=== PATIENT | male | born 1990 | race Hispanic/Latino ===

== ENCOUNTER 2016-11-28 19:42 | Emergency (ER) | payer SELFPAY ==
[~2016-11-28] VITALS: Ht 182.9 cm; Wt 90.0 kg
[~2016-11-28 19:42] MED LIST: HYDR-4003 PO
[2016-11-28 19:58] VITALS: BP 129/78; PULSE 92; RESP 24; O2SAT 92
--- NOTE | 2016-11-28 20:26 | ED.REPORT ---
HPI-Extremity Problem Upper Date of Service Nov 28, 2016 ED Provider: Bryant Puga DO Pt is an otherwise healthy 26 year old male with a history of multiple shoulder dislocations who presents to the ED complaining of increasing right shoulder pain onset this morning when he woke up. He reports the pain is similar to when he has dislocated his shoulder previously. He denies any other symptoms. Nursing Notes Stated Complaint: DISLOCATED SHOULDER Chief Complaint: Extremity Trauma Nursing Notes Reviewed: Yes Allergies: Coded Allergies: No Known Allergies (Verified Allergy, Unknown, 12/01/15) Scheduled PRN Hydrocodone-Acetaminophen 5-325 mg (Hydrocodone-Acetaminophen 5-325 mg) 1 Each Tablet 1-2 TABLET PO Q4H PRN PRN For Pain General Time Seen by MD: 20:25 Chief Complaint Shoulder injury right Hx Obtained From: Patient Arrived By: Walk-in Onset Occurred: 9 - 12 hours ago Symptom Duration: Since onset Location: : Shoulder right Quality: Painful Severity: Current: Moderate Severity: Maximum: Moderate Recent Healthcare: No recent doctor visit, No recent hospitalization Similar Sx Previous: Yes Past Medical History Past Medical History Multiple shoulder dislocations Past Surgical History None Smoking History Never Smoker Review of Systems Constitutional: Denies: Fever Musculoskeletal: Reports: Extremity pain Complete sys rev & neg: except as marked. Respiratory: Denies: Non-productive cough, Shortness of breath Cardiovascular: Denies: Chest pain Physical Exam Initial Vital Signs Vital Signs (First) Date Time Temp Pulse Resp B/P Pulse Ox O2 Delivery O2 Flow Rate FiO2 11/28/16 19:58 36.4 92 24 129/78 92 Room Air Initial VS: Reviewed Head / Eyes: Atraumatic, Normocephalic, PERRL ENT: Mucous membranes moist, Conjunctiva normal, No scleral icterus Neck: Supple, Full range of motion Respiratory: Breath sounds normal, Clear to auscultation, No respiratory distress Cardiovascular: Regular rate & rhythm, Heart sounds normal, Intact distal pulses Abdomen / GI: Soft, Non-tender Lower Extremities: Vascular intact, Neuro intact Skin: Warm, Dry, No cyanosis Neurologic: Alert, Oriented, Nonfocal Psychiatric: Mood/affect normal, Behavior normal General/Constitutional: Awake, Alert, Cooperative, Not toxic appearing Upper Extremity / MS: Neurologic intact, Vascular intact Right dislocated shoulder. Interpretation & Diagnostics Lab Results Interpretation Test 11/28/16 20:33 Hold Purple Top Tube Received (Received) Hold Blue Top Tube Received (Received) Hold Red Top Tube Received (Received) Hold [place] Top Tube Received (Received) X-Ray Interpretation Xray Interpretation: IMPRESSION: Anterior-inferior right shoulder dislocation. Dictated by: Lonny Liu M.D. on 11/28/2016 at 20:44 Study Performed: One view X-Ray Ordered: Shoulder right Interpretation / Wet Read by: Interpret - Radiologist Xray Interpretation: IMPRESSION: Interval relocation of right shoulder. Possible Hill-Sachs deformity. Dictated by: Lonny Liu M.D. on 11/28/2016 at 21:54 Study Performed: Minimum 3-views X-Ray Ordered: Shoulder right Interpretation / Wet Read by: Interpret - Radiologist Procedures Reduction Dislocated Shoulder Time: 21:04 Procedure Performed by: ED physician Consent / Setup: Consent from patient, Oxygen administered, Pulse oximeter applied, traffic monitor specialist applied, Hand hygiene observed, Stand sterile technique Procedural Sedation/Analgesia: Sedation: Ketamine Which Shoulder and Technique: Right shoulder Neurovascular: Intact pre-procedure Post-Procedure / Complications: Reduced per examination, Procedure successful, X-ray disloc reduced, Shoulder immobilized, Condition improved, Tolerated procedure well, Patient stable Re-Eval/Medical Decision Source of Hx: Old records Re-Evaluation/Progress #1: Time of Eval: 20:26 Re-Evaluation/Progress Note: Pt rechecked. Dislocation procedure was attempted, but was unsuccessful. Pt will need to be sedated for relocation of his shoulder. All questions were answered. Re-Evaluation/Progress #2: Time of Eval: 20:48 Re-Evaluation/Progress Note: Pt rechecked. Pt informed of plan for treatment. All questions were answered. Re-Evaluation/Progress #3: Time of Eval: 21:04 Re-Evaluation/Progress Note: Pt rechecked. Relocation of pt's right shoulder was performed under sedation. All questions were answered. Re-Evaluation/Progress #4: Time of Eval: 21:23 Patient Status: Condition improved Re-Evaluation/Progress Note: Pt rechecked. Pt reported that his shoulder is feeling better. All questions were answered. Discharge & Departure Impression: Primary Impression: Dislocation of right shoulder joint Encounter type: initial encounter Qualified Code: S43.004A - Unspecified dislocation of right shoulder joint, initial encounter Additional Impression: Hill Sachs deformity Disposition: Home Discharge Condition All VS Reviewed: Yes Condition: Stable Patient Instructions: Shoulder Dislocation (ED) Additional Instructions: You were seen today for a right shoulder dislocation. Do not drive tonight. Take 1-2 Percocet every 6 hours as needed. Do not drive or drink alcohol or consume acetaminophen while taking Percocet. Call orthopedics for a follow up tomorrow. Keep your shoulder immobilized until you are cleared by orthopedics. Return to the Emergency Department for any new or worsening symptoms. Referrals: [facility] (PCP) Wellington Jenkins MD Attestation Portions of this note were transcribed by Marly Pruitt. I, Dr. Puga personally performed the history, physical exam and medical decision-making; I reviewed and confirmed the accuracy of the information in the transcribed note. Signed by: Krysten Carrero, 11/28/16 and 22:00 copies to: [facility]; Wellington Jenkins MD, Todd P DO Nov 28, 2016 20:26 Marly Farrell Nov 28, 2016 21:43
[2016-11-28] MEDS ORDERED: Ketamine 10 mg/mL 20 mL Inj IV ONE (20:30)
[2016-11-28] MEDS ORDERED: HYDROmorphone 0.5 mg/0.5 mL iSecure Syringe IVPUSH ONE (20:30)
--- NOTE | 2016-11-28 20:48 | DRSVH ---
PROCEDURE: X-RAY RIGHT SHOULDER, ONE VIEW ([id number]) INDICATIONS: SHOULDER PAIN TECHNIQUE: 1 view of the shoulder were acquired. COMPARISON: 12/17/15, 12/01/15. FINDINGS: Bones: Anterior-inferior dislocation of the right humeral head relative to the glenoid fossa.. No s uspicious bony lesions. Visualized ribs appear intact. Soft tissues: No suspicious soft tissue calcifications. IMPRESSION: Anterior-inferior right shoulder dislocation. Dictated by: Lonny Liu M.D. on 11/28/2016 at 20:44 Approved by: Lonny Liu M.D. on 11/28/2016 at 20:46
--- NOTE | 2016-11-28 21:56 | DRSVH ---
PROCEDURE: X-RAY RIGHT SHOULDER, MINIMUM TWO VIEWS ([id number]) INDICATIONS: POST REDUCTION TECHNIQUE: 2 views of the shoulder were acquired. COMPARISON: [facility], CR, XR SHOULDER 4 VW RT, 01/06/2016, 8:48. Shoulder radiographs from 11/28/2016 FINDINGS: Bones: Interval relocation of right shoulder. Possible Hill-Sachs deformity. Soft tissues: No suspicious soft tissue calcifications. IMPRESSION: Interval relocation of right shoulder. Possible Hill-Sachs deformity. Dictated by: Lonny Liu M.D. on 11/28/2016 at 21:54 Approved by: Lonny Liu M.D. on 11/28/2016 at 21:55
[2016-11-28] MEDS ORDERED: _oxyCODONE/APAP 5-325 mg Tablet PO PRN (22:00)
[2016-11-28 22:54] VITALS: BP 132/88; PULSE 86; RESP 16; O2SAT 99
[2016-11-28 22:55] VITALS: BP 132/88; PULSE 86; RESP 16; O2SAT 99
== END 2016-11-28 22:56 | disposition home or self-care (01) ==
LOC: SED 19:42
DX: S43.014A Anterior dislocation of right humerus, initial encounter (principal); X50.9XXA Other and unspecified overexertion or strenuous movements or postures, initial encounter; Y93.89 Activity, other specified; Y92.009 Unspecified place in unspecified non-institutional (private) residence as the place of occurrence of the external cause; Y99.8 Other external cause status; M21.821 Other specified acquired deformities of right upper arm
CPT/HCPCS: 23650; 73020; 73030; 94799; 96361; 96374; 99152; 99153; 99285; J1170

== ENCOUNTER 2017-01-09 13:07 | Emergency (ER) | payer SELFPAY ==
[~2017-01-09] VITALS: Ht 188 cm; Wt 90.9 kg
--- NOTE | 2017-01-09 13:18 | ED.REPORT ---
HPI-Seizure Date of Service Jan 09, 2017 ED Provider: Corwin Winchester MD Patient is a 26 year old male with a history of seizures who presents to the ED due to abnormal behavior onset 3 days ago.Associated symptoms include auditory hallucinations, dizziness and headache. He also complains of fatigue, insomnia, decreased appetite and depression since starting his anti seizure medication. Per the patient's , the patient has been unable to carry conversation without becoming confused, distracted or starting a new conversation after pausing for a minute over the past three days. The patient states that his "brain goes black" during this time and that he doesn't know what was said during the conversation that he missed. She states that the patient has gotten progressively worse since yesterday. The patient started having seizures in the last year and has had 3, with his most recent one occurring a month ago. Patient reports that he only took one pill of his medication instead of his regular two this morning and then decided to skip his afternoon dose of two pills. Nursing Notes Stated Complaint: SEIZURES Nursing Notes Reviewed: Yes Allergies: Coded Allergies: No Known Allergies (Verified Allergy, Unknown, 12/01/15) Scheduled PRN Hydrocodone-Acetaminophen 5-325 mg (Hydrocodone-Acetaminophen 5-325 mg) 1 Each Tablet 1-2 TABLET PO Q4H PRN PRN For Pain General Time Seen by Provider: 13:26 Chief Complaint Chief Complaint: Other (abnormal behavior) Hx Obtained From: Patient, Spouse Arrived By: Walk-in Onset Occurred: 3 days ago Symptom Duration: Intermittent Severity: Current: No pain currently Recent Healthcare: No recent hospitalization Similar Sx Previous: No Past Medical History Past Medical History Multiple shoulder dislocations Reports: Seizure disorder Past Surgical History None Smoking History Never Smoker Social History Alcohol Use: 1-3 per day Other Social History: Good social support, Ambulatory Status Independent Review of Systems Review of Systems Note: +decreased appetite Constitutional: Reports: Fatigue, Denies: Chills, Fever Respiratory: Denies: Non-productive cough, Shortness of breath Skin: Denies Itching, Denies Rash Neurologic: Reports: Dizziness, Headache, Denies: Problem walking, Weakness Complete sys rev & neg: except as marked. Psychiatric: Reports: Hallucinations, auditory, Insomnia Physical Exam Initial Vital Signs Vital Signs (First) Date Time Temp Pulse Resp B/P Pulse Ox O2 Delivery O2 Flow Rate FiO2 01/09/17 13:20 36.8 117 20 136/85 97 Room Air Initial VS: Reviewed General/Constitutional: Awake, Alert, No acute distress Neck: Atraumatic, Supple Respiratory / Chest: Atraumatic, Breath sounds NL, Breath sounds = bilat, No respiratory distress Cardiovascular: Regular rhythm, Heart sounds NL Heart Rate / Rhythm: Positive: Tachycardia Neurologic: Oriented X3, Speech NL, No motor deficits, No sensory deficits, CN II - XII intact Head / Eyes: Atraumatic, Normocephalic, PERRL, EOMI Upper Extremity / MS: Atraumatic, Full range of motion Lower Extremity / Pelvis / MS: Atraumatic, Full range of motion Skin: Atraumatic, Color NL, No rash, Warm, Dry Interpretation & Diagnostics Lab Results Interpretation Result Diagram: 01/09/17 1330 01/09/17 1330 Test 01/09/17 13:30 White Blood Count 11.4th/mm3 (3.8-10.1) Red Blood Count 4.93mil/mm3 (4.40-5.80) Hemoglobin 15.0g/dL (13.8-17.2) Hematocrit 43.6% (41.0-50.0) Mean Corpuscular Volume 88.4fL (81-100) Mean Corpuscular Hemoglobin 30.4pg (27.0-35.0) Mean Corpuscular Hemoglobin Concent 34.4% (32.0-37.0) Red Cell Distribution Width 13.1% (12.3-15.4) Platelet Count 263bil/L (150-400) Neutrophils (%) (Auto) 72.0% (40-74) Lymphocytes (%) (Auto) 16.9% (14-46) Monocytes (%) (Auto) 10.3% (4-12) Eosinophils (%) (Auto) 0.2% (0-5) Basophils (%) (Auto) 0.3% (0-3) Hold Purple Top Tube Received (Received) Sodium Level 138mEq/L (134-144) Potassium Level 3.8mEq/L (3.5-5.2) Chloride Level 99mEq/L (97-108) Carbon Dioxide Level 22mmol/L (18-29) Blood Urea Nitrogen 20mg/dL (6-20) Creatinine 0.77mg/dL (0.76-1.27) Estimat Glomerular Filtration Rate 131mL/min (>59) Glucose Level 126mg/dL (60-99) Calcium Level 9.9mg/dL (8.5-10.1) Total Bilirubin 0.4mg/dL (0.0-1.2) Aspartate Amino Transf (AST/SGOT) 299U/L (0-50) Alanine Aminotransferase (ALT/SGPT) 233U/L (0-44) Alkaline Phosphatase 66U/L (25-150) Total Protein 8.5g/dL (6.4-8.4) Albumin 4.9g/dL (3.4-5.0) Hold Red Top Tube Received (Received) Hold [place] Top Tube Received (Received) Alcohols < 10mg/dL (0-10) Re-Eval/Medical Decision Re-Evaluation/Progress #1: Time of Eval: 14:36 Re-Evaluation/Progress Note: Further discussed history with patient, who admits that he quit drinking cold turkey in November after his seziure. He has since been trying to drink less but admits to drinking "four beers" last night. Patient has also been using benzos at night. Re-Evaluation/Progress #2: Time of Eval: 15:45 Re-Evaluation/Progress Note: Discussed plan for follow up and discharge. Patient understands and agrees to the plan. All questions were addressed. Counseled Regarding: Diagnosis, Lab results, Need for follow-up, When/why to return to ED Discharge & Departure Impression: Primary Impression: Abnormal behavior Disposition: Home Discharge Condition All VS Reviewed: Yes Condition: Stable Additional Instructions: Your lab work was normal and reassuring. It is uncertain what was causing your symptoms at this time. You may in fact have epilepsy, but there are many other factors at play here so a clear diagnosis is not possible at this time. You should continue to take your medications as they were prescribed until you have your follow up appointment. During your appointment with your primary care physician, you can mention how it has been making you feel and other options. Avoid alcohol and other drugs, specifically Xanax, for now. Use Benadryl 50 mg at bedtime to help him sleep. Return to the emergency department if you develop any new or concerning symptoms. Referrals: Brad Stanford MD (PCP) Scribe Attestation Portions of this note were transcribed by Dominique Serna. I, Dr. Winchester personally performed the history, physical exam and medical decision-making; I reviewed and confirmed the accuracy of the information in the transcribed note. Signed by: Krysten Rod, 01/09/17 and 1339. copies to: Brad Stanford MD, Kirk H MD Jan 09, 2017 13:18 Alyssa Serna Jan 09, 2017 13:34
[2017-01-09 13:20] VITALS: BP 136/85; PULSE 117; RESP 20; O2SAT 97
[2017-01-09 14:47] LABS: Mean Corpuscular Hemoglobin 30.4 pg (27.0-35.0); Mean Corpuscular Volume 88.4 fL (81-100)
[2017-01-09 14:48] LABS: BASOPHILS % (AUTO) 0.3 % (0-3); EOSINOPHILS % (AUTO) 0.2 % (0-5); MONOCYTES % (AUTO) 10.3 % (4-12); Platelet Count 263 bil/L (150-400)
[2017-01-09 16:21] VITALS: BP 125/79; PULSE 95; RESP 20; O2SAT 96
== END 2017-01-09 16:22 | disposition home or self-care (01) ==
LOC: SED 13:07
DX: F91.9 Conduct disorder, unspecified (principal); R44.0 Auditory hallucinations; R42 Dizziness and giddiness; R51 Headache; R53.83 Other fatigue; G47.00 Insomnia, unspecified; F32.9 Major depressive disorder, single episode, unspecified; F50.89 Other specified eating disorder; Z86.69 Personal history of other diseases of the nervous system and sense organs
CPT/HCPCS: 36415; 80053; 85025; 99283; G0480